=== PATIENT | male | born 1955 | race Caucasian/White ===

== ENCOUNTER 2020-06-27 15:12 | Observation (INO) | payer OTHER, BC, SELFPAY ==
[2020-06-27] VITALS (11 sets, daily range): BP systolic 103–150; BP diastolic 55–80; PULSE 65–91; RESP 12–20; TEMP 36.3–37.4; O2SAT 94–100; BMI 33.2
--- NOTE | ~2020-06-27 | CT_ITS ---
EXAMINATION: CT abdomen pelvis wo con DATE: 06/27/2020 17:17 INDICATION: Right lower abdominal pain TECHNIQUE: Computed tomography (CT) of the abdomen and pelvis was performed without intravenous contr ast. Automated exposure control and iterative reconstruction technique were employed. Exam dose: 116 9.66 mGy-cm total exam DLP. COMPARISON: None. FINDINGS: Minimal atelectasis in the dependent lower lobes primarily. Normal heart size. No pericardial or pleural effusion. Diffuse hepatic steatosis. The gallbladder is present. No pericholecystic fluid or fat stranding or a pparent gallbladder wall thickening or edema. No bile duct or pancreatic duct dilatation. No pancreat ic mass lesion or calcification. Normal splenic size. Normal morphology of the adrenal glands. The left kidney is surgically absent. No right renal mass lesion or urinary tract calculus or hydronephrosis is evident on this limited non contrast examination. The urinary bladder, prostate gland and seminal vesicles are unremarkable. Mild left inguinal fat-containing hernia. There is atherosclerotic calcification of the abdominal aorta and at the origins of the celiac and marie perior mesenteric arteries. No abdominal aortic aneurysm. No intraperitoneal or retroperitoneal or pe lvic mass lesion or adenopathy or ascites. The appendix is dilated up to 12 mm diameter, with thickening of the appendiceal wall and prominent p eriappendiceal fat stranding and adjacent fascial thickening consistent with prominent surrounding in flammatory change. There is minimal extraluminal gas adjacent to the appendiceal wall. There is mild diverticulosis of the left colon. No CT evidence of diverticulitis. IMPRESSION: Acute ruptured appendicitis with prominent surrounding inflammatory change Diverticulosis of the left colon; no CT evidence of diverticulitis Mild fat-containing left inguinal hernia Hepatic steatosis Status post left nephrectomy Dr. Crow telephoned the report on 06/27/2020 at 1731 hours to emergency room physician Dr. Barbosa. Reviewed, dictated and finalized at [facility]. Reviewed, dictated and finalized at [facility]. IMPRESSION: Acute ruptured appendicitis with prominent surrounding inflammator y change Diverticulosis of the left colon; no CT evidence of diverticulitis Mild fat-containing left inguinal hernia Hepatic steatosis Status post left nephrectomy Dr. Crow telephoned the report on 06/27/2020 at 1731 hours to emergency room kylah Barbosa.
[2020-06-27 15:30] LABS: Basophils Percent Auto 0.3 % (0.2-1.2); Eosinophils Absolute Auto 0.1 K/mm3 (0-0.3); Eosinophils Percent Auto 0.5 % (0-4.4); Hemoglobin 14.8 g/dL (14.0-18.0); Immature Granulocyte Absolute 0.04 K/mm3 (0.00-0.031); Immature Granulocyte Percent A 0.3 % (0-0.5); Mean Corpuscular HGB Conc 33.6 g/dl (32-36); Mean Corpuscular Hemoglobin 31.5 pg (26-34); Mean Corpuscular Volume 93.6 fl (80-100); Mean Platelet Volume 9.7 fl (7.4-10.4); Monocytes Absolute Auto 1.4 K/mm3 (0.1-0.6); Monocytes Percent Auto 10.5 % (2.6-8.5); Neutrophils Absolute Auto 10.6 K/mm3 (1.3-6.7); Neutrophils Percent Auto 79.4 % (45.5-73.1); Platelet Count Result 192 k/mm3 (150-375); Red Cell Distribution Width 12.5 % (11.5-14.5); White Blood Count 13.3 K/mm3 (4.5-10.0)
[2020-06-27 15:43] LABS: Alanine Aminotransferase 58 U/L (4-50); Alkaline Phosphatase 104 U/L (38-126); Anion Gap 8 mmol/L (8-16); Aspartate Amino Transferase 29 U/L (17-59); Bilirubin,Total 1.7 mg/dL (0.2-1.3); Blood Urea Nitrogen 20 mg/dL (9-20); Calcium 9.7 mg/dL (8.4-10.2); Carbon Dioxide 25 mmol/L (22-30); Chloride 105 mmol/L (98-107); Estimated CRCL calculation 56 ml/min; Estimated Glomerular Filt Rate 47; Glucose 122 mg/dL (75-110); Lipase 76 U/L (23-300); Potassium 4.2 mmol/L (3.4-5.0); Sodium 138 mmol/L (137-145)
[2020-06-27 16:27] LABS: Add Urine Microscopic? YES; Appearance Urine Clear (Clear); Bilirubin Urine Negative (Negative); Blood Urine Negative (Negative); Color Urine Amber (Yellow); Glucose Urine UA Negative (Negative); Ketones Urine Negative (Negative); Leukocyte Esterase Ur Negative LEU/UL (Negative); Mucus Urine Heavy /lpf; Nitrate Urine Negative (Negative); Protein Urine 2+ mg/dL (Negative); RBC Urine 0-2 /hpf (0-2); Squamous Epithelial Cell Urine Rare /hpf (Few); Urobilinogen Urine Negative mg/dL (<2.0)
--- NOTE | 2020-06-27 16:36 | ED.ABDPAIN ---
HPI - Abdominal Pain General Chief Complaint: Abdominal Pain Stated Complaint: abdominal pain Time Seen by Provider: 06/27/20 16:08 Source: patient and RN notes reviewed Mode of arrival: ambulatory Limitations: no limitations History of Present Illness HPI narrative: This is a 65 year old male who presents for evaluation of right lower abdominal pain. He developed diffuse abdominal discomfort with nausea and dry heaves early Saturday morning. He states his pain has now moved to his right lower abdomen. He reports severe constant pain. He has decreased appetite , subjective fever and chills. PAin is 8/10. Pain Consistency: constant Exacerbating factors: nothing Relieving factors: nothing Related Data Home Medications Medication Instructions Recorded Confirmed olmesartan 20 mg PO DAILY 06/27/20 06/27/20 Allergies Allergy/AdvReac Type Severity Reaction Status Date / Time No Known Allergies Allergy Verified 06/27/20 21:19 Review of Systems Review of Systems: All systems reviewed & are unremarkable except as noted in HPI and below Constitutional: Constitutional: Reports chills, Reports fever(s) (subjective) and Reports weakness Respiratory: Respiratory: Denies cough and Denies dyspnea Gastrointestinal: Gastrointestinal: Reports abdominal pain, Denies diarrhea, Reports nausea and Denies vomiting Genitourinary: Genitourinary: Denies hematuria, Denies dysuria and Denies urinary frequency Musculoskeletal: Musculoskeletal: Denies back pain PMF Past Medical History Medical History Hypertension Surgical History Surgical History History of nephrectomy Family History Family History (Updated 06/27/20 @ 21:29 by Ely Garcia RN) Father Family history of malignant neoplasm Throat cancer Mother Family history of malignant neoplasm Lung cancer Sibling Diabetes mellitus Social History Social History Smoking packs per day: 1 Smoking cigarettes per day: 20.0 Years smoked: 20 Smoking pack-years: 20.00 Smoking status: Former smoker Second hand tobacco smoke exposure: Yes Alcohol intake: current Drinks per week: 1 Substance use: former Substance use type: marijuana Other substance usage details: 1970 Gender identity (if verbalized by the patient): Male Sexual Orientation (if Verbalized by the Patient): Straight or Heterosexual Spiritual care concerns: No Exam Narrative: Exam Narrative: GENERAL: Well-appearing, well-nourished, and in no acute distress. HEAD: Normocephalic, atraumatic NOSE: Nares clear, no rhinorrhea or epistaxis THROAT:Mucous membranes moist, Oropharynx normal without erythema, exudate, peritonsillar swelling or fluctuance NECK: Supple, without lymphadenopathy or mass RESPIRATORY: No respiratory distress, Airway patent, Respirations non-labored, Clear to auscultation without rales, rhonchi or wheeze HEART: Regular rate and rhythm. No murmur heard. Normal peripheral pulses. ABDOMEN: Soft,RLQ, positive rovsing nondistended, normal active bowel sounds. No masses. No rebound or guarding, No organomegaly. EXTREMITIES: No edema, normal strength with full range of motion. SKIN: Warm, dry, normal color without rash NEURO: Alert and oriented x3. CN 2-12 grossly intact. No focal deficits. PSYCH: Normal mood and affect. Course Reevaluation(s) Reevaluation #1: I discussed with patient that he was found to have ruptured appendicitis. He will get IV antibiotics. He denies needing additional pain medication. Date: 06/27/20 Time: 17:51 Consultations Consultation #1: I discussed with Dr. Alvarez and he will call OR Date: 06/27/20 Time: 17:50 Vital Signs Vital signs: Vital Signs Temperature 98.2 F 06/27/20 15:18 Pulse Rate 91 06/27/20 15:18 Respiratory Rate
[2020-06-27] MEDS: LACTATED RINGERS 1,000 ML 999 ML IV CONT (16:37)
[2020-06-27] MEDS: ONDANSETRON INJ 4 MG/2 ML VIAL IV PUSH (16:37)
--- NOTE | 2020-06-27 17:09 | PC.NURSE ---
Pt to CT.
--- NOTE | 2020-06-27 18:39 | PM.IMHP ---
H&P: HPI History of Present Illness Date/Time: 06/27/20 18:39 Chief Complaint: RLQ pain Narrative: This is a 65-year-old man who presented to the emergency department today with right lower quadrant pain. He stated that his pain started 2 days ago. His pain progressed throughout the day yesterday but this morning became much worse. He denies any fevers or chills. He has never had any symptoms like this in the past. Review of Systems Review of Systems: All systems reviewed & are unremarkable except as noted in HPI and below Eyes: Eyes: Denies change in vision ENT: Denies hearing loss, Denies neck pain and Denies sore throat Cardiovascular: Cardiovascular: Denies chest pain and Denies dyspnea Respiratory: Respiratory: Denies cough, Denies dyspnea and Denies wheezing Genitourinary: Genitourinary: Denies hematuria and Denies dysuria Musculoskeletal: Musculoskeletal: Denies arthralgias, Denies joint swelling and Denies neck pain Allergic/Immunologic: Allergic/Immunologic: Denies wheezing [facility] Past Medical History Medical History Hypertension Surgical History Surgical History History of nephrectomy Family History Family History Father Family history of malignant neoplasm Mother Family history of malignant neoplasm Social History Social History Smoking status: Former smoker Alcohol intake: current Gender identity (if verbalized by the patient): Male Meds Home Medications and Allergies Home Medications Medication Instructions Recorded Confirmed Type olmesartan PO 06/27/20 History Allergies Allergy/AdvReac Type Severity Reaction Status Date / Time No Known Allergies Allergy Unverified 06/27/20 16:08 Vital Signs Vital Signs - 24 hr 06/27/20 15:18 06/27/20 18:08 Temperature 36.8 C Pulse Rate 91 83 Respiratory Rate 17 18 Blood Pressure 136/76 103/58 L Pulse Oximetry 99 98 Exam Const: General: alert; No acute distress Orientation/consciousness: patient oriented x3 Limitations: no limitations HENMT: Head: normocephalic and atraumatic Ears: hearing grossly normal bilaterally General nose exam: Normal external nose present and Normal nares present Mouth: Yes Normal oral and palatal mucosa present and Yes moist mucous membranes Eyes: General: appearance normal, both eyes and all related structures Conjunctivae: conjunctivae normal Sclera: sclerae normal Pupils: Equal, round and reactive pupils present EOM: EOMs intact bilaterally Neck: Neck: normal visual inspection, full ROM, no lymphadenopathy, supple and no JVD Lymphatic: no lymphadenopathy noted Chest: Chest palpation & inspection: normal inspection of the chest Resp: Effort & Inspection: normal respiratory effort and able to speak in complete sentences Auscultation: clear to auscultation bilaterally Percussion: percussion normal Cardio: Jugular venous distension: no JVD Rate: regular rate Rhythm: regular rhythm Heart sounds: S1 normal heart sound present and S2 normal heart sound present Peripheral pulses: Peripheral pulses 2+ throughout GI: Inspection: non-distended GI Palp: Yes Soft to palpation, Yes Tenderness to palpation present (GI) (Right lower quadrant), Yes Guarding due to palpation present (GI) (Right lower quadrant), No Hernia present and No Rebound tenderness present Percussion: Yes normal to percussion Auscultation: normal bowel sounds : General: Yes no CVA tenderness Back/Spine/Pelvis: Back: no CVA tenderness Skin: General skin exam: normal color and dry skin Neuro: General: patient oriented x3, gait normal, moves all extremities, no focal motor deficits and CN's II-XI intact bilaterally Cranial nerves: Yes Equal, round and reactive pupils present Speech: normal s
--- NOTE | 2020-06-27 18:43 | WPDANESEPPF ---
Anes - Initial Pre Proc Eval Procedure: Operation Date: 06/27/20 19:00 Proposed Procedures p Laparoscopic Appendectomy - Tristian Alvarez DO Date/Time: 06/27/20 18:43 Pre Op Diagnosis: abdominal pain Patient Data Age: 65 Gender: M Height: 5 ft 11 in Weight: 104 kg Last Vital Signs Temp 36.8 C 06/27/20 15:18 Pulse 83 06/27/20 18:08 Resp 18 06/27/20 18:08 BP 103/58 L 06/27/20 18:08 Pulse Ox 98 06/27/20 18:08 Allergies Allergy/AdvReac Type Severity Reaction Status Date / Time No Known Allergies Allergy Unverified 06/27/20 16:08 Home Medications Medication Instructions Recorded Confirmed Type olmesartan PO 06/27/20 History Laboratory Tests 06/27/20 06/27/20 06/27/20 15:23 15:23 16:11 WBC 13.3 K/mm3 H K/mm3 (4.5-10.0) RBC 4.70 M/mm3 M/mm3 (4.6-6.20) Hgb 14.8 g/dL g/dL (14.0-18.0) Hct 44.0 % % (42.0-52.0) MCV 93.6 fl fl (80-100) MCH 31.5 pg pg (26-34) MCHC 33.6 g/dl g/dl (32-36) RDW 12.5 % % (11.5-14.5) Plt Count 192 k/mm3 k/mm3 (150-375) MPV 9.7 fl fl (7.4-10.4) Immature Gran % (Auto) 0.3 % % (0-0.5) Neut % (Auto) 79.4 % H % (45.5-73.1) Lymph % (Auto) 9.0 % L % (18.3-44.2) [place] % (Auto) 10.5 % H % (2.6-8.5) Eos % (Auto) 0.5 % % (0-4.4) Baso % (Auto) 0.3 % % (0.2-1.2) Lymph # (Auto) 1.20 K/mm3 K/mm3 (0.9-3.2) [place] # (Auto) 1.4 K/mm3 H K/mm3 (0.1-0.6) Eos # (Auto) 0.1 K/mm3 K/mm3 (0-0.3) Baso # (Auto) 0.0 K/mm3 K/mm3 (0.0-0.1) Abs Immat Gran (auto) 0.04 K/mm3 H K/mm3 (0.00-0.031) Absolute Neuts (auto) 10.6 K/mm3 H K/mm3 (1.3-6.7) Absolute Nucleated RBC 0.0 K/mm3 K/mm3 (0.0-0.012) Nucleated RBC % 0.0 % % (0.0-0.2) Sodium 138 mmol/L mmol/L (137-145) Potassium 4.2 mmol/L mmol/L (3.4-5.0) Chloride 105 mmol/L mmol/L (98-107) Carbon Dioxide 25 mmol/L mmol/L (22-30) Anion Gap 8 mmol/L mmol/L (8-16) BUN 20 mg/dL mg/dL (9-20) Creatinine 1.50 mg/dL H mg/dL (0.7-1.3) Estim Creat Clear Calc 56 ml/min ml/min Estimated GFR 47 L (59 - ) Glucose 122 mg/dL H mg/dL (75-110) Calcium 9.7 mg/dL mg/dL (8.4-10.2) Total Bilirubin 1.7 mg/dL H mg/dL (0.2-1.3) AST 29 U/L U/L (17-59) ALT 58 U/L H U/L (4-50) Alkaline Phosphatase 104 U/L U/L (38-126) Total Protein 9.0 g/dL H g/dL (6.3-8.2) Albumin 5.0 g/dL g/dL (3.5-5.1) Lipase 76 U/L U/L (23-300) Urine Color Nayla (Yellow) Urine Appearance Clear (Clear) Urine pH 6.0 (5.0-9.0) Ur Specific [place] 1.030 (1.001-1.035) Urine Protein 2+ mg/dL H mg/dL (Negative) Urine Glucose (UA) Negative mg/dL mg/dL (Negative) Urine Ketones Negative mg/dL mg/dL (Negative) Ur Blood (Man) Negative (Negative) Urine Nitrate Negative (Negative) Urine Bilirubin Negative (Negative) Urine Urobilinogen Negative mg/dL mg/dL (<2.0) Leukocyte Esterase Rfl Negative KELLE/UL KELLE/UL (Negative) Urine RBC 0-2 /hpf /hpf (0-2) Urine WBC 7-9 /hpf H /hpf Ur Squamous Epith Cells Rare /hpf /hpf (Few) Hyaline Casts 5-9 /lpf H /lpf (None) Urine Mucus Heavy /lpf H /lpf Patient hx anesthesia problems: none Family hx anesthesia problems: none PMFSH Past Medical History Medical History Hypertension Surgical History Surgical History History of nephrectomy Family History Family History
--- NOTE | 2020-06-27 18:45 | WPDHPUPDATE1 ---
History and Physical Update Update Date/Time: 06/27/20 18:45 History and Physical has been reviewed, including an updated exam of the patient. There are NO changes in the patient's condition. Risks, benefits, and alternatives have been discussed and questions answered. Patient agrees to proceed with procedure.
--- NOTE | 2020-06-27 18:45 | PM.PROC ---
Procedure Note - Detailed Date of procedure: 06/27/20 Pre-op diagnosis: Acute appendicitis Post-op diagnosis: other (Acute gangrenous perforated appendicitis) Procedure performed: Laparoscopic Appendectomy Description of procedure: Procedure as well as risks, benefits, and alternatives were explained to the patient. The patient agreed to proceed. Written consent was obtained and placed in chart prior to procedure. The patient was brought back to surgical suite. He was placed supine on operating table. Time-out was done to confirm the patient and procedure. The patient was then intubated by the Anesthesia Department. His abdomen was prepped and draped in sterile fashion using chlorhexidine prep. A 5 mm incision was made just to the left of the patient's umbilicus and a 5 mm Optiview trocar was advanced through the abdominal layers under direct visualization. Once inside the peritoneal cavity, carbon dioxide insufflation was used to create a pneumoperitoneum. The camera was inserted and the abdomen was inspected. No immediate abnormalities were identified. The patient was then placed in slight Trendelenburg position and rotated to the left. A 5 mm incision was made in the suprapubic region in midline and a 5 mm trocar was inserted under direct visualization. A 12 mm incision was made in the left lower quadrant and a 12 mm trocar was inserted under direct visualization. The right lower quadrant was carefully inspected. The cecum was identified and then this was traced back to the appendix. The appendix was identified and grasped at the mesoappendix and lifted anteriorly. Careful blunt dissection was carried out at the base of the appendix through the mesoappendix using a [place] grasper. An Endo-MERLIN 45 mm blue load stapler was then advanced across the base of the appendix and clamped and fired. A white reload was then clamped across the mesoappendix and fired. This freed up our appendix completely. It was then placed in an EndoCatch bag and removed through the left lower quadrant port. The staple lines were then inspected. Hemostasis appeared adequate and the staple lines appeared secure. The area was then irrigated with sterile saline. The pelvis was then carefully inspected and irrigated with sterile saline as well and the remainder of the abdomen was carefully inspected. The patient was then flattened out in bed. One final inspection was made around the abdominal cavity and no other abnormalities were seen. The left lower quadrant port was removed and a Angel-Nicole cone was used to approximate the fascia with a 0 Vicryl simple interrupted suture. The remaining ports were then removed under direct visualization. The camera was removed and the pneumoperitoneum was released. 0.5% bupivacaine with epinephrine was infiltrated locally around each of the incisions. The skin of the incisions was then approximated using 4-0 Monocryl subcuticular suture and Exofin glue was applied on top. The patient was then awakened from anesthesia, extubated, and transferred to Recovery. Anesthesia: GETA and local (0.5% bupivicaine with epi) Surgeon: Tristian Alvarez DO Estimated blood loss (mL): 10 Drains: No Pathology: yes (Appendix) Complications: No immediate complications Condition: stable Disposition: floor Findings: This is a 65-year-old man who presented to the emergency department with right lower quadrant pain for the past 2 days. His pain was progressively worsening and became severe today. In the emergency department he was found to have an elevated white blood count and CT showed evidence of acute appendicitis with likely perforation. Decision was made to proceed with urgent laparoscopic appendectomy, possible open. Laparoscopic appendectomy was performed. The appendix appeared gangrenous and had likely perforation but no surrounding abscess or spillage of purulent fluid. The base of the appendix appeared healthy and viable. He was found to
[2020-06-27] MEDS: BUPIVACAINE/EPINEPHRINE 0.5% 30 ML VIAL INFILTRATE (19:05)
[2020-06-27] MEDS: LACTATED RINGERS 1,000 ML 30 ML IV CONT ×2 (19:43)
--- NOTE | 2020-06-27 19:48 | SUR.OPER ---
PRE OP PATIENT WITH CHIPPED RIGHT UPPER FRONT TOOTH CHIP/ASSESSED BY NIK ROMERO CRNA AND AL JOHNSON RN.
--- NOTE | 2020-06-27 21:00 | ADMGEN ---
This patient, Sundeep Burnette, was admitted to Medical Room 347-. Patient/family oriented to hospital policies and general routines including ID bracelet, bed and alarms, visiting hours, pain management, procedures, bathroom and other care routines, personal items, smoking policy, room service/diet, and visiting hours. Information on how to activate the Rapid Response Team has been discussed. Patient/Family are encouraged to report perceived risks to care and to ask questions if they do not understand what they are told or what they should do.
[2020-06-27] MEDS: LACTATED RINGERS 1,000 ML 100 ML IV CONT (21:39)
[2020-06-28 02:40] VITALS: BP 98/46; PULSE 75; RESP 14; TEMP 36.6; O2SAT 96
[2020-06-28 05:47] LABS: Hematocrit 35.2 % (42.0-52.0); Immature Platelet Fraction Pct 3.2 % (0.9-11.2); Mean Corpuscular HGB Conc 34.1 g/dl (32-36); Mean Corpuscular Hemoglobin 31.2 pg (26-34); Mean Corpuscular Volume 91.4 fl (80-100); Mean Platelet Volume 10.2 fl (7.4-10.4); Platelet Count Result 145 k/mm3 (150-375); Red Blood Count 3.85 M/mm3 (4.6-6.20); Red Cell Distribution Width 12.4 % (11.5-14.5); White Blood Count 8.1 K/mm3 (4.5-10.0)
[2020-06-28 06:00] LABS: Anion Gap 5 mmol/L (8-16); Blood Urea Nitrogen 17 mg/dL (9-20); Calcium 8.5 mg/dL (8.4-10.2); Carbon Dioxide 25 mmol/L (22-30); Chloride 108 mmol/L (98-107); Estimated CRCL calculation 57 ml/min; Estimated Glomerular Filt Rate 47; Glucose 108 mg/dL (75-110); Sodium 138 mmol/L (137-145)
[2020-06-28 06:17] VITALS: BP 126/69; PULSE 72; RESP 18; TEMP 37.2; O2SAT 93
--- NOTE | 2020-06-28 08:48 | WPDANESPN ---
Anes - Prog Note Post-Op Date/Time: 06/28/20 08:48 Cardiovascular status: normal Respiratory status: normal Airway patency: baseline Mental status: baseline Post-Op hydration status: normal Vital Signs: Last Vital Signs Temp 37.2 C 06/28/20 06:17 Pulse 72 06/28/20 06:17 Resp 18 06/28/20 06:17 BP 126/69 06/28/20 06:17 Pulse Ox 93 06/28/20 06:17 Pain Score (VAS): 0 I/O: Intake & Output 06/27/20 06/28/20 06/28/20 23:59 07:59 15:59 Intake Total 1700 1100 Output Total 500 550 Balance 1200 550 Laboratory Tests 06/28/20 05:20 06/28/20 05:20 06/27/20 06/27/20 06/27/20 15:23 15:23 16:11 WBC 13.3 H RBC 4.70 Hgb 14.8 Hct 44.0 MCV 93.6 MCH 31.5 MCHC 33.6 RDW 12.5 Plt Count 192 MPV 9.7 Immature Gran % (Auto) 0.3 Neut % (Auto) 79.4 H Lymph % (Auto) 9.0 L [place] % (Auto) 10.5 H Eos % (Auto) 0.5 Baso % (Auto) 0.3 Lymph # (Auto) 1.20 [place] # (Auto) 1.4 H Eos # (Auto) 0.1 Baso # (Auto) 0.0 Abs Immat Gran (auto) 0.04 H Absolute Neuts (auto) 10.6 H Absolute Nucleated RBC 0.0 Nucleated RBC % 0.0 % Immature Plt Fraction Sodium 138 Potassium 4.2 Chloride 105 Carbon Dioxide 25 Anion Gap 8 BUN 20 Creatinine 1.50 H Estim Creat Clear Calc 56 Estimated GFR 47 L Glucose 122 H Calcium 9.7 Total Bilirubin 1.7 H AST 29 ALT 58 H Alkaline Phosphatase 104 Total Protein 9.0 H Albumin 5.0 Lipase 76 Urine Color Nayla Urine Appearance Clear Urine pH 6.0 Ur Specific [place] 1.030 Urine Protein 2+ H Urine Glucose (UA) Negative Urine Ketones Negative Ur Blood (Man) Negative Urine Nitrate Negative Urine Bilirubin Negative Urine Urobilinogen Negative Leukocyte Esterase Rfl Negative Urine RBC 0-2 Urine WBC 7-9 H Ur Squamous Epith Cells Rare Hyaline Casts 5-9 H Urine Mucus Heavy H 06/28/20 06/28/20 05:20 05:20 WBC 8.1 RBC 3.85 L Hgb 12.0 L Hct 35.2 L MCV 91.4 MCH 31.2 MCHC 34.1 RDW 12.4 Plt Count 145 L MPV 10.2 Immature Gran % (Auto) Neut % (Auto) Lymph % (Auto) [place] % (Auto) Eos % (Auto) Baso % (Auto) Lymph # (Auto) [place] # (Auto) Eos # (Auto) Baso # (Auto) Abs Immat Gran (auto) Absolute Neuts (auto) Absolute Nucleated RBC Nucleated RBC % % Immature Plt Fraction 3.2 Sodium 138 Potassium 4.0 Chloride 108 H Carbon Dioxide 25 Anion Gap 5 L BUN 17 Creatinine 1.50 H Estim Creat Clear Calc 57 Estimated GFR 47 L Glucose 108 Calcium 8.5 Total Bilirubin AST ALT Alkaline Phosphatase Total Protein Albumin Lipase Urine Color Urine Appearance Urine pH Ur Specific [place] Urine Protein Urine Glucose (UA) Urine Ketones Ur Blood (Man) Urine Nitrate Urine Bilirubin Urine Urobilinogen Leukocyte Esterase Rfl Urine RBC Urine WBC Ur Squamous Epith Cells Hyaline Casts Urine Mucus Post-procedural complaints: none Patient Feedback: Patient satisfied with anesthetic care.
[2020-06-28] MEDS: ENOXAPARIN 40 MG/0.4 ML SYRINGE SUB-Q (09:05)
--- NOTE | 2020-06-28 12:38 | PM.DS ---
DS: Admitting Diagnosis Admitting Diagnosis Admitting Diagnosis: Acute perforated appendicitis DS: Discharge Diagnosis Discharge Diagnosis (1) Acute perforated appendicitis: Code(s): K35.32 - Acute appendicitis with perforation and localized peritonitis, without abscess Status: Acute DS: Summary Hospital Course Reason for hospitalization: acute perforated appendicitis Hospital Course: this is a 65-year-old man who presented to the emergency department on 06/27/2020 with right lower quadrant pain for the past [address] of his abdomen and pelvis showed evidence of acute perforated appendicitis. He was taken urgently for surgery 06/27/2020 and underwent laparoscopic appendectomy. Surgery was uncomplicated and he was admitted to the surgical floor postoperatively. His diet was gradually advanced as tolerated and his pain was controlled with IV and oral pain medications. He remained hemodynamically stable and on postop day 1 he was tolerating a regular diet. He remained afebrile and his white blood count was normal. He was tolerating light activity without too much pain. He was discharged on postop day 1. Status at Discharge Functional status at discharge: independent ambulation Overall status at discharge: patient is progressing back to baseline Time Spent with Patient Time attestation: Total time spent providing and/or coordinating discharge services: Time spent: Less than 30 minutes Exam Resp: Effort & Inspection: normal respiratory effort Auscultation: clear to auscultation bilaterally Cardio: Rate: regular rate Rhythm: regular rhythm Heart sounds: S1 normal heart sound present and S2 normal heart sound present GI: Inspection: normal to inspection and incision ( Intact with glue) GI Palp: Yes Tenderness to palpation present (GI) ( incisional) and No Guarding due to palpation present (GI) Auscultation: normal bowel sounds DS: Data Data Completed and Pending Pending studies at discharge: Pending at discharge 06/27/20 19:47 Surgical [PTH] Routine Labs on day of discharge: Labs from last 24 hours 06/28/20 06/28/20 06/27/20 05:20 05:20 16:11 WBC 8.1 RBC 3.85 L Hgb 12.0 L Hct 35.2 L MCV 91.4 MCH 31.2 MCHC 34.1 RDW 12.4 Plt Count 145 L MPV 10.2 Immature Gran % (Auto) Neut % (Auto) Lymph % (Auto) [place] % (Auto) Eos % (Auto) Baso % (Auto) Lymph # (Auto) [place] # (Auto) Eos # (Auto) Baso # (Auto) Abs Immat Gran (auto) Absolute Neuts (auto) Absolute Nucleated RBC Nucleated RBC % % Immature Plt Fraction 3.2 Sodium 138 Potassium 4.0 Chloride 108 H Carbon Dioxide 25 Anion Gap 5 L BUN 17 Creatinine 1.50 H Estim Creat Clear Calc 57 Estimated GFR 47 L Glucose 108 Calcium 8.5 Total Bilirubin AST ALT Alkaline Phosphatase Total Protein Albumin Lipase Urine Color Nayla Urine Appearance Clear Urine pH 6.0 Ur Specific [place] 1.030 Urine Protein 2+ H Urine Glucose (UA) Negative Urine Ketones Negative Ur Blood (Man) Negative Urine Nitrate Negative Urine Bilirubin Negative Urine Urobilinogen Negative Leukocyte Esterase Rfl Negative Urine RBC 0-2 Urine WBC 7-9 H Ur Squamous Epith Cells Rare Hyaline Casts 5-9 H Urine Mucus Heavy H 06/27/20 06/27/20 15:23 15:23 WBC 13.3 H RBC 4.70 Hgb 14.8 Hct 44.0 MCV 93.6 MCH 31.5 MCHC 33.6 RDW 12.5 Plt Count 192 MPV 9.7 Immature Gran % (Auto) 0.3 Neut % (Auto) 79.4 H Lymph % (Auto) 9.0 L [place] % (Auto) 10.5 H Eos % (Auto) 0.5 Baso % (Auto) 0.3 Lymph # (Auto) 1.20 [place] # (Auto) 1.4 H Eos # (Auto) 0.1 Baso # (Auto) 0.0 Abs Immat Gran (auto) 0.04 H Absolute Neuts (auto) 10.6 H Absolute Nucleated RBC 0.0 Nucleated RBC % 0.0 % Immature Plt Fraction Sodium 138 Potassium 4.2 Chloride 105 Carbon Dioxide
== END 2020-06-28 13:15 | disposition home or self-care (01) ==
LOC: ANHED 16:42 → ANHSURGERY 18:46 → ANH3MED 22:46
PROVIDERS: Emergency Medicine; Admitting Provider Surgery; Emergency Provider General Practice; PCP Internal Medicine; Visit Provider Surgery
PROC: 0DTJ4ZZ Resection of Appendix, Percutaneous Endoscopic Approach (ICD-10-PCS; CPT 44970; principal; 2020-06-27 19:00)
DX: K35.32 Acute appendicitis with perforation, localized peritonitis, and gangrene, without abscess (principal); R10.31 Right lower quadrant pain; I10 Essential (primary) hypertension; Z90.5 Acquired absence of kidney; Z87.891 Personal history of nicotine dependence
CPT/HCPCS: 44970; 36415; 74176; 80048; 80053; 81001; 83690; 85025; 85027; 85055; 87086; 88304; 96361; 96365; 96367; 96372; 96375; 96376; 99285; A9270; G0378; J0131; J0330; J1650; J2250; J2405; J2543; J2704; J2710; J3010; J7120

== ENCOUNTER 2021-09-18 00:24 | Day surgery (SDC) | payer OTHER, BC, SELFPAY ==
[2021-09-07 10:01] VITALS: BMI 32.8
[2021-09-18 08:07] VITALS: BP 120/81; PULSE 64; RESP 18; TEMP 36; O2SAT 98
[2021-09-18] MEDS: LACTATED RINGERS 1,000 ML 150 ML IV CONT (08:09)
--- NOTE | 2021-09-18 08:18 | PM.IMHP ---
H&P: HPI History of Present Illness Date/Time: 09/18/21 08:18 Chief Complaint: Neoplasia screening. Narrative: This is a 66-year-old white male patient presents for neoplasia screening. Patient's current weight appetite and bowel movements are normal. Patient denies abdominal pain. He has had no bleeding. Family history is noncontributory. Patient presents today for screening colonoscopy. Review of Systems Review of Systems: Review of systems noncontributory. [facility] Past Medical History Medical History Hypertension Surgical History Surgical History History of laparoscopic appendectomy 06/27/20 History of nephrectomy Family History Family History Father Family history of malignant neoplasm Throat cancer Mother Family history of malignant neoplasm Lung cancer Sibling Diabetes mellitus Social History Social History Smoking packs per day: 1 Smoking cigarettes per day: 20.0 Years smoked: 20 Smoking pack-years: 20.00 Smoking status: Former smoker Tobacco type: cigarettes Second hand tobacco smoke exposure: Yes Alcohol intake: current Drinks per week: 1 Substance use: former Substance use type: marijuana Other substance usage details: 1970 Living arrangements: with family Gender identity (if verbalized by the patient): Male Sexual Orientation (if Verbalized by the Patient): Straight or Heterosexual Spiritual care concerns: No Meds Home Medications and Allergies Home Medications Medication Instructions Recorded Confirmed Type olmesartan 20 mg tablet 20 mg PO DAILY 06/27/20 09/18/21 History aspirin 81 mg tablet 81 mg PO 2XW 09/07/21 09/18/21 History Allergies Allergy/AdvReac Type Severity Reaction Status Date / Time No Known Allergies Allergy Verified 09/18/21 08:05 Vital Signs Vital Signs - 24 hr 09/18/21 08:07 Temperature 96.8 F L Pulse Rate 64 Respiratory Rate 18 Blood Pressure 120/81 Pulse Oximetry 98 Oxygen Delivery Room Air Exam Narrative: Physical exam reveals patient be alert. Vital signs stable. HEENT exam is unremarkable. Patient is anicteric. Lungs are clear to auscultation and percussion. Heart is without murmur or extra sounds. Abdominal exam bowel sounds are present soft nontender with no organomegaly. Digital external rectal exam is normal. Assessment and Plan Assessment and plan (1) Encounter for screening colonoscopy: Code(s): Z12.11 - Encounter for screening for malignant neoplasm of colon Status: Acute Assessment and Plan: Patient presents today for screening colonoscopy. Appears to be at average risk for colon polyps. Further recommendations will be given after endoscopy.
--- NOTE | 2021-09-18 08:29 | P.PNAN_ITS ---
Anes - Initial Pre Proc Eval Procedure: Operation Date: 09/18/21 09:00 Proposed Procedures p Screening Colonoscopy - Malik Smith MD Date/Time: 09/18/21 08:29 Surgeon: Malik Smith MD Pre Op Diagnosis: neoplasm screening Patient Data Age: 66 Gender: M Height: 1.8 m Weight: 108.5 kg Last Vital Signs Temp 96.8 F L 09/18/21 08:07 Pulse 64 09/18/21 08:07 Resp 18 09/18/21 08:07 BP 120/81 09/18/21 08:07 Pulse Ox 98 09/18/21 08:07 O2 Del Method Room Air 09/18/21 08:07 Allergies Allergy/AdvReac Type Severity Reaction Status Date / Time No Known Allergies Allergy Verified 09/18/21 08:05 Home Medications Medication Instructions Recorded Confirmed Type olmesartan 20 mg tablet 20 mg PO DAILY 06/27/20 09/18/21 History aspirin 81 mg tablet 81 mg PO 2XW 09/07/21 09/18/21 History Patient hx anesthesia problems: none Family hx anesthesia problems: none Results Review: All pre-operative results and documents have been reviewed as part of the pre- operative evaluation. [facility] Past Medical History Medical History Hypertension Surgical History Surgical History History of laparoscopic appendectomy 06/27/20 History of nephrectomy Family History Family History Father Family history of malignant neoplasm Throat cancer Mother Family history of malignant neoplasm Lung cancer Sibling Diabetes mellitus Social History Social History Smoking packs per day: 1 Smoking cigarettes per day: 20.0 Years smoked: 20 Smoking pack-years: 20.00 Smoking status: Former smoker Tobacco type: cigarettes Second hand tobacco smoke exposure: Yes Alcohol intake: current Drinks per week: 1 Substance use: former Substance use type: marijuana Other substance usage details: 1970 Living arrangements: with family Gender identity (if verbalized by the patient): Male Sexual Orientation (if Verbalized by the Patient): Straight or Heterosexual Spiritual care concerns: No Anes - Eval Final PreProcedure Day of Procedure 09/18/21 08:29 Patient weight: obese Heart: regular rate and rhythm Lungs: clear to auscultation Airway: Mallampati scale class II Neurological: alert and oriented Last oral intake: >/= 8 hours ASA classification: III Emergent: no Anesthetic plan: proceed Anesthesia type and monitoring: general GIVS and standard monitoring Results Review: All pre-operative results and documents have been reviewed as part of the pre- operative evaluation. Informed Consent: The patient's anesthetic plan and its attendant risks and benefits were discussed with the patient/family/POA. Questions were solicited and answers provided to the satisfaction of the patient/family/POA.
[2021-09-18 09:16] VITALS: BP 80/50; PULSE 62; RESP 20; O2SAT 100
[2021-09-18 09:26] VITALS: BP 83/41; PULSE 60; RESP 20; O2SAT 98
[2021-09-18 09:36] VITALS: BP 100/57; PULSE 55; RESP 13; O2SAT 100
[2021-09-18 09:53] LABS: Basophils Percent Auto 0.8 % (0.2-1.2); Eosinophils Absolute Auto 0.2 K/mm3 (0-0.3); Eosinophils Percent Auto 3.1 % (0-4.4); Hematocrit 39.1 % (42.0-52.0); Hemoglobin 12.9 g/dL (14.0-18.0); Immature Granulocyte Absolute 0.02 K/mm3 (0.00-0.031); Immature Granulocyte Percent A 0.4 % (0-0.5); Lymphocytes Absolute Auto 1.28 K/mm3 (0.9-3.2); Lymphocytes Percent Auto 26.4 % (18.3-44.2); Mean Corpuscular Hemoglobin 31.4 pg (26-34); Mean Corpuscular Volume 95.1 fl (80-100); Mean Platelet Volume 9.8 fl (7.4-10.4); Monocytes Absolute Auto 0.5 K/mm3 (0.1-0.6); Monocytes Percent Auto 9.5 % (2.6-8.5); Neutrophils Absolute Auto 2.9 K/mm3 (1.3-6.7); Neutrophils Percent Auto 59.8 % (45.5-73.1); Platelet Count Result 164 k/mm3 (150-375); Red Blood Count 4.11 M/mm3 (4.6-6.20); Red Cell Distribution Width 12.7 % (11.5-14.5); White Blood Count 4.9 K/mm3 (4.5-10.0)
[2021-09-18 10:10] LABS: Alanine Aminotransferase 79 U/L (6-50); Albumin Level 4.5 g/dL (3.5-5.1); Alkaline Phosphatase 85 U/L (38-126); Aspartate Amino Transferase 53 U/L (17-59)
[2021-09-18 10:39] LABS: Carcinoembryonic Antigen 0.4 ng/mL (0.0-3.0)
== END 2021-09-18 09:52 | disposition home or self-care (01) ==
PROVIDERS: PCP Internal Medicine; Visit Provider Internal Medicine Gastroenterology
PROC: 0DJD8ZZ Inspection of Lower Intestinal Tract, Via Natural or Artificial Opening Endoscopic (ICD-10-PCS; CPT 45378; principal; 2021-09-18 09:00)
DX: Z12.11 Encounter for screening for malignant neoplasm of colon (principal); C19 Malignant neoplasm of rectosigmoid junction; I10 Essential (primary) hypertension; Z79.82 Long term (current) use of aspirin; Z90.5 Acquired absence of kidney; Z87.891 Personal history of nicotine dependence; E66.9 Obesity, unspecified; Z68.33 Body mass index [BMI] 33.0-33.9, adult
CPT/HCPCS: 45380; 36415; 80076; 82378; 85025; 88305; J2704; J7120

== ENCOUNTER 2021-10-02 13:47 | Outpatient (CLI) | payer OTHER, BC, SELFPAY ==
--- NOTE | 2021-10-02 14:57 | ECG_ITS ---
Measurements Intervals [place] Rate: 60 P: -9 UT: 166 QRS: 44 QRSD: 96 T: 14 QT: 396 QTc: 396 Interpretive Statements SINUS RHYTHM MODERATE T-WAVE ABNORMALITY, CONSIDER ANTERIOR ISCHEMIA ABNORMAL ECG NO PREVIOUS ECG AVAILABLE FOR COMPARISON Electronically Signed On 10-02-2021 16:38:16 CDT by Jean Au M.D.
== END 2021-10-02 13:48 | disposition home or self-care (01) ==
LOC: ANHSURGERY 13:54
PROVIDERS: PCP Internal Medicine; Visit Provider Surgery
DX: I10 Essential (primary) hypertension (principal); Z01.818 Encounter for other preprocedural examination; R94.31 Abnormal electrocardiogram [ECG] [EKG]
CPT/HCPCS: 93005

== ENCOUNTER 2021-10-18 14:42 | Inpatient (IN) | payer OTHER, BC, SELFPAY ==
--- NOTE | 2021-10-02 14:14 | PC.NURSE ---
Report to the Outpatient Waiting Room, entrance under the green pavilion located off [facility], at time _1000 on date _10/18/21 . OR Time: __1200 . - You and your visitor will be asked to self-screen and do not enter if you have any COVID symptoms. - Only one visitor and NO children visitors are allowed at this time. - The patient visitor is requested to leave or wait in car when not with patient due to restrictions. - A mask is required within the hospital. Patients may have clear liquids (water, carbonated beverages, clear teas, apple juice) until 3 hours prior to surgery with a maximum of 20 ounces. - No food from midnight until time of surgery - Infants may have breast milk until 4 hours before surgery, infant formula 6 hours prior to surgery. - Children will be allowed to drink immediately following surgery. If applicable, please bring a bottle or sippy cup to assist with drinking. Juice, water, soda, and popsicles are readily available. For infants on formula, please bring formula the day of surgery. Pacifiers are allowed. Take the following medications with a SIP of water the morning of surgery: NONE Medications to discontinue per physician MULTI VITAMIN 3 DAYS PRE OP Date to take last dose 10/14/21 Please no make-up, nail sa[place], hairspray, perfume, deodorant, or body powder the day of surgery. No jewelry (including any body piercings) or valuables the day of surgery, leave them at home. Please take a shower or bath the night before, or the morning of, surgery with an antibacterial soap. Wear comfortable, loose fitting clothing. Children are encouraged to wear pajamas. - Jewelry must be removed prior to entering the operating room. Rings and piercings that are not removed may be cut off. - The hospital will not accept responsibility for valuables. - Please leave all valuables, including medications, at home the day of surgery.HIBICLENS SHOWER DAY BEFORE SURGERY AND MORNING OF SURGERY ENSURE BUNDLE PACK PER DR WHITAKER If you are going home after surgery, a licensed fork truck driver must drive you home. - NO public transportation without another adult. - We recommend that an adult stay with you for 24 hours following discharge. - We also recommend that you do not drive, make important decision, drink alcoholic beverages, or take any drugs that were not prescribed by your health care provider for at least 24 hours after your discharge time. For Pediatric surgeries, we recommend two adults accompany the child home (only one inside the building at this time). Follow any additional instructions given to you from your surgeon. If you or anyone in your household have experienced Covid symptoms in the past week, please notify your surgeon or the nurse liaison at the phone number below for possible testing. VERBAL AND WRITTEN instructions given to ___PATIENT and asked if any additional questions and then verbalized understanding. Patient advised to call surgeon office or pre surgery nurse liaison [phone] if any additional questions.
[2021-10-02 14:29] VITALS: BP 118/77; PULSE 63; RESP 18; TEMP 36.7; O2SAT 99; BMI 33.9
--- NOTE | 2021-10-17 14:23 | WPDANESEPPF ---
Anes - Initial Pre Proc Eval Procedure: Operation Date: 10/18/21 12:00 Proposed Procedures p Hand Assisted Laparoscopic Low Anterior Resection - Deandra Olvera MD Date/Time: 10/17/21 14:23 Surgeon: Deandra Olvera MD Pre Op Diagnosis: Rectal Sigmoid Colon Ca Patient Data Age: 66 Gender: M Height: 1.8 m Weight: 110.4 kg Last Vital Signs Temp 98.0 F 10/02/21 14:29 Pulse 63 10/02/21 14:29 Resp 18 10/02/21 14:29 BP 118/77 10/02/21 14:29 Pulse Ox 99 10/02/21 14:29 O2 Del Method Room Air 10/02/21 14:29 Allergies Allergy/AdvReac Type Severity Reaction Status Date / Time No Known Allergies Allergy Verified 10/02/21 13:59 Home Medications Medication Instructions Recorded Confirmed Type olmesartan 20 mg tablet 20 mg PO DAILY 06/27/20 10/02/21 History aspirin 81 mg tablet 81 mg PO 2XW 09/07/21 10/02/21 History erythromycin 500 mg tablet 1 g PO .COMPLEX #6 tabs 09/25/21 10/02/21 Rx cetirizine 10 mg tablet (Zyrtec) 10 mg PO DAILY 10/02/21 10/02/21 History fxrpvgds-nde-itmcw acid 300 1 tablet PO DAILY 10/02/21 10/02/21 History mcg-lycopene 600 mcg-lutein 300 mcg tablet (Centrum Silver Men) ciprofloxacin HCl 500 mg tablet 500 mg PO ONCE #1 tablet 10/13/21 Rx Patient hx anesthesia problems: none Family hx anesthesia problems: none Results Review: All pre-operative results and documents have been reviewed as part of the pre-operative evaluation. [facility] Past Medical History Medical History Hypertension Surgical History Surgical History History of laparoscopic appendectomy 06/27/20 History of nephrectomy Family History Family History Father Family history of malignant neoplasm Throat cancer Mother Family history of malignant neoplasm Lung cancer Sibling Diabetes mellitus Social History Social History (Reviewed 10/18/21 @ 11:02 by CINTHYA Jason Smoking packs per day: 1 Smoking cigarettes per day: 20.0 Years smoked: 20 Smoking pack-years: 20.00 Smoking status: Former smoker Tobacco type: cigarettes Second hand tobacco smoke exposure: Yes Smoking end date: 02/11/95 Alcohol intake: current Drinks per week: 1 Substance use: former Substance use type: marijuana Other substance usage details: 1970 Living arrangements: with family 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 Gender identity (if verbalized by the patient): Male Sexual Orientation (if Verbalized by the Patient): Straight or Heterosexual Spiritual care concerns: No Anes - Eval Final PreProcedure Day of Procedure 10/17/21 14:23 Patient weight: obese Heart: regular rate and rhythm Lungs: clear to auscultation Airway: Mallampati scale class III (anterior) Neurological: alert and oriented Last oral intake: >/= 8 hours ASA classification: III Emergent: no Anesthetic plan: proceed Anesthesia type and monitoring: general ETT Results Review: All pre-operative results and documents have been reviewed as part of the pre-operative evaluation. Informed Consent: The patient's anesthetic plan and its attendant risks and benefits were discussed with the patient/family/POA. Questions were solicited and answers provided to the satisfaction of the patient/family/POA.
[2021-10-18] VITALS (14 sets, daily range): BP systolic 96–151; BP diastolic 56–86; PULSE 62–88; RESP 12–18; TEMP 35.8–36.8; O2SAT 92–99
--- NOTE | 2021-10-18 10:14 | WPDHPUPDATE1 ---
History and Physical Update Update Date/Time: 10/18/21 10:14 History and Physical has been reviewed, including an updated exam of the patient. There are NO changes in the patient's condition. Risks, benefits, and alternatives have been discussed and questions answered. Patient agrees to proceed with procedure.
[2021-10-18] MEDS: ACETAMINOPHEN 500 MG TABLET 1000 MG PO (10:25)
[2021-10-18] MEDS: KETOROLAC 15 MG/ML VIAL (*BKC) IV PUSH (10:26)
[2021-10-18] MEDS: LACTATED RINGERS 1,000 ML 30 ML IV CONT ×2 (10:36→14:51)
--- NOTE | 2021-10-18 11:01 | WPDANESEPP ---
Anes - Eval Pre Procedure Procedure: Operation Date: 10/18/21 12:00 Proposed Procedures p Hand Assisted Laparoscopic Low Anterior Resection - Deandra Olvera MD Date/Time: 10/18/21 11:01 Surgeon: Wade Preop Diagnosis: Sigmoid Colon Cancer Pre Op Diagnosis: Rectal Sigmoid Colon Ca Patient Data Age: 66 Gender: M Height: 1.8 m Weight: 110.4 kg Last Vital Signs Temp 98.0 F 10/02/21 14:29 Pulse 63 10/02/21 14:29 Resp 18 10/02/21 14:29 BP 118/77 10/02/21 14:29 Pulse Ox 99 10/02/21 14:29 O2 Del Method Room Air 10/02/21 14:29 Allergies Allergy/AdvReac Type Severity Reaction Status Date / Time No Known Allergies Allergy Verified 10/02/21 13:59 Home Medications Medication Instructions Recorded Confirmed Type olmesartan 20 mg tablet 20 mg PO DAILY 06/27/20 10/02/21 History aspirin 81 mg tablet 81 mg PO 2XW 09/07/21 10/02/21 History erythromycin 500 mg tablet 1 g PO .COMPLEX #6 tabs 09/25/21 10/02/21 Rx cetirizine 10 mg tablet (Zyrtec) 10 mg PO DAILY 10/02/21 10/02/21 History gftlthgq-zsj-hfldk acid 300 1 tablet PO DAILY 10/02/21 10/02/21 History mcg-lycopene 600 mcg-lutein 300 mcg tablet (Centrum Silver Men) ciprofloxacin HCl 500 mg tablet 500 mg PO ONCE #1 tablet 10/13/21 Rx Laboratory Tests 10/18/21 10:24 Blood Type Pending Antibody Screen Pending ECG: Interpretive Statements SINUS RHYTHM MODERATE T-WAVE ABNORMALITY, CONSIDER ANTERIOR ISCHEMIA ABNORMAL ECG NO PREVIOUS ECG AVAILABLE FOR COMPARISON Electronically Signed On 10-02-2021 16:38:16 CDT by Jean Au M.D. Patient hx anesthesia problems: none Family hx anesthesia problems: none Results Review: All pre-operative results and documents have been reviewed as part of the pre-operative evaluation. [facility] Past Medical History Medical History Hypertension Surgical History Surgical History History of laparoscopic appendectomy 06/27/20 History of nephrectomy Family History Family History Father Family history of malignant neoplasm Throat cancer Mother Family history of malignant neoplasm Lung cancer Sibling Diabetes mellitus Social History Social History Smoking packs per day: 1 Smoking cigarettes per day: 20.0 Years smoked: 20 Smoking pack-years: 20.00 Smoking status: Former smoker Tobacco type: cigarettes Second hand tobacco smoke exposure: Yes Smoking end date: 02/11/95 Alcohol intake: current Drinks per week: 1 Substance use: former Substance use type: marijuana Other substance usage details: 1970 Living arrangements: with family 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
[2021-10-18] MEDS: ceFAZolin 2 GM/D5W 50 ML 2 GM/50 ML BAG IVPB (11:12)
[2021-10-18] MEDS: metroNIDAZOLE 500 MG/ISO 100ML 500 MG/100 ML BAG 100 MG IVPB (11:30)
[2021-10-18] MEDS: BUPIVACAINE/EPINEPHRINE 0.25% 50 ML VIAL 30 ML INFILTRATE (12:09)
--- NOTE | 2021-10-18 14:46 | W.PM.PROC2 ---
Procedure Note - Detailed Date of Procedure 10/18/21 Pre-op Diagnosis distal sigmoid colon cancer Post-op Diagnosis Same Procedure Performed Hand assisted laparoscopic low anterior resection Surgeon Deandra Olvera MD Behavioral Sciences Department Chair Dr. Alvarez Anesthesia General and Local Indications 66-year-old male presenting to the office with biopsy-proven low sigmoid colon cancer Findings distal sigmoid colon cancer at approximately 10 cm Description of Procedure The patient was taken to the operating room and placed in the modified lithotomy position. After adequate induction of general anesthesia, the patient was prepped and draped in the normal sterile fashion. A time-out was then done to verify the patient's identity, as well as the procedure being performed. Dr. Alvarez was present for all critical portions of the case including parts of the dissection and the anastomosis. I began by making a hand port incision around the umbilicus. This incision was carried down into the peritoneal cavity and no adhesions were noted. At this point, the hand port was placed and the abdomen was insufflated. I then placed a trocar through this site and under direct visualization placed a 5 mm and 12 mm ports in the right lower abdomen. There were some adhesions of the small bowel to the pelvis and these were taken down with the LigaSure device. I was then able to sweep the small bowel out of the operative field. I then identified the the mass in the distal sigmoid colon. This was noted to be in the distal sigmoid approximately 10 cm from the anal verge. I then mobilized the proximal colon to gain adequate length for our anastomosis. This was somewhat difficult given his previous left nephrectomy. I took down the white line of Toldt laterally along the sigmoid and descending colon. In order to insure adequate length I went ahead and mobilized the splenic flexure as well. I then began dissection of the sigmoid colon itself. I used a medial to lateral approach 1st identifying the left colic vessels. The left colic vessels were identified at the base the mesentery. I was unable to visualize the left ureter, given his previous nephrectomy. I then took down the left colic vessels using the LigaSure device. I then carried this dissection plane inferiorly to the level of the distal sigmoid upper rectum. I then dissected laterally by taking down the white line of Toldt in this area. Also dissected around the area of the distal sigmoid and upper rectum. I was then able to get around circumferentially in the distal sigmoid upper rectal area and was able to get into the mesorectal plane posteriorly. I then transected the distal sigmoid approximately 2 cm distal to the mass using a echelon stapler. Of note this did take 3 staple loads. At this point I was able to extracorporealyze the specimen. I then again was able to identify the mass and noted adequate clear margin distally. I then found an area proximal to this mass approximately 10 cm to transect the proximal sigmoid colon. This was done with an echelon stapler. I then prepared the proximal colon for our colorectal anastomosis. Using the EEA sizers, it was noted a 28 EEA stapler would be used for the anastomosis. I then used a auto pursestring device after transecting the proximal colon and placing the 28 anvil in the proximal colon. We then reinsufflated the abdomen and noted adequate length of the proximal colon for our anastomosis. The rectum was then dilated 1st digitally then with the EEA sizers. Once adequately done, the 28 EEA stapler was placed through the rectum and brought out through the middle of the previous staple line. I then completed a 28 EEA colorectal anastomosis. We then did an air leak test using the proctoscope and no leak was noted. The anastomosis was noted to be widely patent and tension-free. I then examined the rest of the abdomen and no other pathology was noted. Then copiously irrigated th
--- NOTE | 2021-10-18 16:24 | ADMGEN ---
This patient, Sundeep Burnette, was admitted to Medical Room 253-01. Patient/family oriented to hospital policies and general routines including ID bracelet, bed and alarms, visiting hours, pain management, procedures, bathroom and other care routines, personal items, smoking policy, room service/diet, and visiting hours. Information on how to activate the Rapid Response Team has been discussed. Patient/Family are encouraged to report perceived risks to care and to ask questions if they do not understand what they are told or what they should do.
[2021-10-18] MEDS: LACTATED RINGERS 1,000 ML 100 ML IV CONT (16:43)
[2021-10-18] MEDS: HYDROcodone/acetaminophen (*CRX) 5-325 MG TABLET 1 TAB PO ×2 (16:48→20:45)
[2021-10-19 03:35] VITALS: BP 127/72; PULSE 81; RESP 18; TEMP 36.7; O2SAT 94
[2021-10-19 05:22] LABS: Basophils Percent Auto 0.2 % (0.2-1.2); Hematocrit 38.3 % (42.0-52.0); Immature Granulocyte Absolute 0.07 K/mm3 (0.00-0.031); Immature Granulocyte Percent A 0.6 % (0-0.5); Lymphocytes Absolute Auto 0.49 K/mm3 (0.9-3.2); Lymphocytes Percent Auto 3.9 % (18.3-44.2); Mean Corpuscular HGB Conc 33.9 g/dl (32-36); Mean Corpuscular Hemoglobin 31.9 pg (26-34); Mean Corpuscular Volume 94.1 fl (80-100); Monocytes Percent Auto 7.7 % (2.6-8.5); Neutrophils Absolute Auto 10.9 K/mm3 (1.3-6.7); Neutrophils Percent Auto 87.6 % (45.5-73.1); Platelet Count Result 175 k/mm3 (150-375); Red Blood Count 4.07 M/mm3 (4.6-6.20); Red Cell Distribution Width 12.5 % (11.5-14.5); White Blood Count 12.5 K/mm3 (4.5-10.0)
[2021-10-19 05:29] LABS: Anion Gap 15 mmol/L (8-16); Blood Urea Nitrogen 19 mg/dL (9-20); Calcium 8.4 mg/dL (8.4-10.2); Carbon Dioxide 20 mmol/L (22-30); Chloride 103 mmol/L (98-107); Estimated CRCL calculation 50 ml/min; Estimated Glomerular Filt Rate 41; Glucose 169 mg/dL (65-110); Potassium 4.7 mmol/L (3.4-5.0); Sodium 138 mmol/L (137-145)
[2021-10-19] MEDS: ENOXAPARIN 40 MG/0.4 ML SYRINGE SUB-Q (08:43)
[2021-10-19] MEDS: LACTATED RINGERS 1,000 ML 100 ML IV CONT ×2 (09:19→19:19)
--- NOTE | 2021-10-19 09:39 | PM.PNGS ---
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 Status: Acute Plan doing well, cont clears, await ROBF, encourage OOB/IS, await path Subjective Subjective Date/Time Seen: 10/19/21 09:39 feels ok, incisional soreness, juan clears Review of Systems Review of Systems: All systems reviewed & are unremarkable except as noted in HPI and below Exam Const: General: cooperative, comfortable and no acute distress Resp: Auscultation: clear to auscultation bilaterally Cardio: Rate: regular rate Rhythm: regular rhythm GI: Inspection: normal to inspection, Abdominal wall edema, distended and incision GI Palp: Yes abdominal tenderness, Yes Soft to palpation, Yes Tenderness to palpation present (GI), No Guarding due to palpation present (GI) and No Rigid due to palpation Objective Data Vital Signs Vital Signs: Vital Signs - 24 hr 10/18/21 11:00 10/18/21 14:51 10/18/21 15:06 Temperature 36.3 C L 36.2 C L Pulse Rate 62 88 68 Respiratory Rate 16 14 16 Blood Pressure 134/79 112/67 96/56 L Pulse Oximetry 99 96 98 Oxygen Delivery Room Air Simple Face Mask Simple Face Mask Oxygen Flow Rate 10 10 10/18/21 15:21 10/18/21 15:36 10/18/21 15:57 Temperature 36.2 C L Pulse Rate 72 65 70 Respiratory Rate 16 14 18 Blood Pressure 101/67 116/63 108/69 Pulse Oximetry 93 93 92 Oxygen Delivery Room Air Room Air Room Air Oxygen Flow Rate 10/18/21 16:12 10/18/21 16:30 10/18/21 16:45 Temperature 36.3 C L 35.8 C L Pulse Rate 66 67 Respiratory Rate 12 12 Blood Pressure 134/75 139/74 Pulse Oximetry 94 94 93 Oxygen Delivery Room Air Oxygen Flow Rate 10/18/21 17:16 10/18/21 17:28 10/18/21 18:25 Temperature 36.4 C 36.4 C Pulse Rate 72 71 Respiratory Rate 12 16 Blood Pressure 151/80 H 150/86 H Pulse Oximetry 96 99 Oxygen Delivery Room Air Oxygen Flow Rate 10/18/21 19:30 10/18/21 20:00 10/18/21 23:41 Temperature 36.8 C 36.7 C Pulse Rate 75 75 78 Respiratory Rate 18 18 18 Blood Pressure 141/84 H 130/74 Pulse Oximetry 96 96 95 Oxygen Delivery Room Air Oxygen Flow Rate 10/19/21 03:35 10/19/21 08:48 Temperature 36.7 C Pulse Rate 81 Respiratory Rate 18 Blood Pressure 127/72 Pulse Oximetry 94 Oxygen Delivery Room Air Oxygen Flow Rate Intake/Output Intake/Output: Intake & Output 10/16/21 10/17/21 10/18/21 10/19/21 23:59 23:59 23:59 23:59 Intake Total 1650 1360 Output Total 105 1000 Balance 1545 360 Meds/Results Medications: Active Medications Generic Name Dose Route Start Last Admin Trade Name Freq PRN Reason Stop Dose Admin Hydrocodone Bitart/Acetaminophen 1 tab 10/18/21 14:43 10/18/21 20:45 Hydrocodone/Acetaminophen (*Crx) 5-325 Mg Tablet PO 1 tab Q4H PRN Administration Pain Rated 4-6 Alvimopan 12 mg 10/19/21 21:00 Alvimopan 12 Mg Capsule PO 10/26/21 20:59 Q12HR SUSAN Enoxaparin Sodium 40 mg 10/19/21 09:00 10/19/21 08:43 Enoxaparin 40 Mg/0.4 Ml Syringe SUB-Q 40 mg DAILY SUSAN Administration Lactated Ringer's 1,000 mls @ 100 mls/hr 10/18/21 14:45 10/19/21 09:19 Lr - Lactated Ringers Iv IV CONT 100 mls/hr .Q10H SUSAN Administration Morphine Sulfate 2 mg 10/18/21 16:58 Morphine Sulfate (*Crx) 2 Mg/Ml Inj IV PUSH Q2HR PRN Pain Rated 4-6 Morphine Sulfate 4 mg 10/18/21 16:58 Morphine Sulfate (*Crx) 4 Mg/Ml Inj IV PUSH Q2HR PRN Pain Rated 7-10 Ondansetron HCl 4 mg 10/18/21 17:00 Ondansetron Inj 4 Mg/2 Ml Vial IV PUSH Q4H PRN Nausea And Vomiting Labs Labs: Laboratory Results - last 24 hr 10/18/21 10/19/21 10/19/21 10:24 04:57 04:57 WBC 12.5 H RBC 4.07 L Hgb 13.0 L Hct 38.3 L MCV 94.1 MCH 31.9 MCHC 33.9 RDW 12.5 Plt Count 175 MPV 10.0 Immature Gran % (Auto) 0.6 H Neut % (Auto) 87.6 H Lymph % (Auto) 3.9 L Mo
--- NOTE | 2021-10-19 10:40 | WPDANESPN ---
Anes - Prog Note Post-Op Date/Time: 10/19/21 10:40 Cardiovascular status: normal Respiratory status: normal Airway patency: baseline Mental status: baseline Post-Op hydration status: normal Vital Signs: Last Vital Signs Temp 36.7 C 10/19/21 03:35 Pulse 81 10/19/21 03:35 Resp 18 10/19/21 03:35 BP 127/72 10/19/21 03:35 Pulse Ox 94 10/19/21 03:35 O2 Del Method Room Air 10/19/21 08:48 O2 Flow Rate 10 10/18/21 15:06 Pain Score (VAS): 3 I/O: Intake & Output 10/18/21 10/19/21 10/19/21 23:59 07:59 15:59 Intake Total 1500 850 510 Output Total 105 1000 1650 Balance 1395 -150 -1140 Laboratory Tests 10/19/21 04:57 10/19/21 04:57 10/18/21 10/19/21 10/19/21 10:24 04:57 04:57 WBC 12.5 H RBC 4.07 L Hgb 13.0 L Hct 38.3 L MCV 94.1 MCH 31.9 MCHC 33.9 RDW 12.5 Plt Count 175 MPV 10.0 Immature Gran % (Auto) 0.6 H Neut % (Auto) 87.6 H Lymph % (Auto) 3.9 L [place] % (Auto) 7.7 Eos % (Auto) 0.0 Baso % (Auto) 0.2 Lymph # (Auto) 0.49 L [place] # (Auto) 1.0 H Eos # (Auto) 0.0 Baso # (Auto) 0.0 Abs Immat Gran (auto) 0.07 H Absolute Neuts (auto) 10.9 H Absolute Nucleated RBC 0.0 Nucleated RBC % 0.0 Sodium 138 Potassium 4.7 Chloride 103 Carbon Dioxide 20 L Anion Gap 15 BUN 19 Creatinine 1.70 H Estim Creat Clear Calc 50 Estimated GFR 41 L Glucose 169 H Calcium 8.4 Blood Type O Negative Antibody Screen Negative Patient Feedback: Patient satisfied with anesthetic care.
[2021-10-19] MEDS: HYDROcodone/acetaminophen (*CRX) 5-325 MG TABLET 1 TAB PO (11:27)
[2021-10-19 13:10] LABS: Appearance Urine Clear (Clear); Bilirubin Urine Negative (Negative); Blood Urine 3+ (Negative); Glucose Urine UA Negative (Negative); Ketones Urine Negative (Negative); Leukocyte Esterase Ur 3+ LEU/UL (Negative); Nitrate Urine Negative (Negative); Protein Urine 1+ mg/dL (Negative); Urobilinogen Urine 0.2 mg/dL (<2.0); pH Urine 6.5 (5.0-9.0)
[2021-10-19 13:21] LABS: Add Urine Microscopic? YES; Color Urine Light Red (Yellow)
[2021-10-19 13:56] LABS: Squamous Epithelial Cell Urine Occasional /hpf (Few)
[2021-10-19 14:00] VITALS: BP 114/64; PULSE 71; RESP 14; TEMP 36.9; O2SAT 95
[2021-10-19 20:00] VITALS: PULSE 75; RESP 20; O2SAT 95
[2021-10-19] MEDS: CIPROFLOXACIN 400 MG/D5W 200ML 200 ML 200 MG IVPB (20:43)
[2021-10-19] MEDS: ALVIMOPAN 12 MG CAPSULE PO (20:44)
[2021-10-19 20:51] VITALS: BP 138/82; PULSE 75; RESP 20; TEMP 36.6; O2SAT 95
[2021-10-20 04:25] VITALS: BP 161/84; PULSE 78; RESP 20; TEMP 36.5; O2SAT 94
[2021-10-20 05:08] LABS: Hematocrit 34.1 % (42.0-52.0); Hemoglobin 11.7 g/dL (14.0-18.0); Mean Corpuscular HGB Conc 34.3 g/dl (32-36); Mean Corpuscular Hemoglobin 32.5 pg (26-34); Mean Corpuscular Volume 94.7 fl (80-100); Platelet Count Result 153 k/mm3 (150-375); Red Cell Distribution Width 12.7 % (11.5-14.5); White Blood Count 10.3 K/mm3 (4.5-10.0)
[2021-10-20 05:14] LABS: Anion Gap 8 mmol/L (8-16); Blood Urea Nitrogen 21 mg/dL (9-20); Carbon Dioxide 24 mmol/L (22-30); Chloride 106 mmol/L (98-107); Estimated CRCL calculation 57 ml/min; Estimated Glomerular Filt Rate 47; Glucose 121 mg/dL (65-110); Potassium 4.1 mmol/L (3.4-5.0); Sodium 138 mmol/L (137-145)
[2021-10-20] MEDS: LACTATED RINGERS 1,000 ML 100 ML IV CONT (07:57)
[2021-10-20] MEDS: CIPROFLOXACIN 400 MG/D5W 200ML 200 ML 200 MG IVPB (07:57)
[2021-10-20] MEDS: ENOXAPARIN 40 MG/0.4 ML SYRINGE SUB-Q (08:00)
[2021-10-20] MEDS: ALVIMOPAN 12 MG CAPSULE PO (08:00)
--- NOTE | 2021-10-20 11:39 | PM.DS ---
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 analgesia, Colace (2) Hypertension: Code(s): I10 - Essential (primary) hypertension Status: Acute Assessment and Plan: stable, continue home medication (3) BMI 34.0-34.9,adult: Code(s): Z68.34 - Body mass index [BMI] 34.0-34.9, adult Status: Acute Assessment and Plan: stable, discussed lifestyle and dietary modification DS: Summary Hospital Course Reason for hospitalization: rectosigmoid colon cancer Hospital Course: The patient is a 66-year-old male that presented to the hospital with a rectosigmoid colon cancer, biopsy proven via colonoscopy. On 10/18, the patient was taken to the operating room and LAR was performed, please see full operative report for details of procedure. Postoperatively, the patient did well and was transferred to the medical-surgical floor. On postoperative day 1. , the patient was doing well and his Flowers was removed. He was up and ambulating and tolerating a clear liquid diet. Later in the day he did have some flatus. On today postoperative day 2. , patient has had a few small bowel movements. We were able to advance his diet without issue. He has been up and ambulating without issue. The patient reports his pain is well controlled. He will be discharged home with p.o. analgesia and follow-up in 2 weeks. Status at Discharge Overall status at discharge: patient is progressing back to baseline Time Spent with Patient Time attestation: Total time spent providing and/or coordinating discharge services: Time spent: Less than 30 minutes Exam Const: General: cooperative, comfortable and no acute distress Resp: Auscultation: clear to auscultation bilaterally Cardio: Rate: regular rate Rhythm: regular rhythm GI: Inspection: normal to inspection, non-distended and incision GI Palp: Yes abdominal tenderness, Yes Soft to palpation, Yes Tenderness to palpation present (GI), No Guarding due to palpation present (GI) and No Rigid due to palpation DS: Data Data Completed and Pending Pending studies at discharge: Pending at discharge 10/18/21 13:54 Surgical [PTH] Routine Labs on day of discharge: Labs from last 24 hours 10/20/21 10/20/21 10/19/21 04:53 04:53 12:48 WBC 10.3 H RBC 3.60 L Hgb 11.7 L Hct 34.1 L MCV 94.7 MCH 32.5 MCHC 34.3 RDW 12.7 Plt Count 153 MPV 10.0 Sodium 138 Potassium 4.1 Chloride 106 Carbon Dioxide 24 Anion Gap 8 BUN 21 H Creatinine 1.50 H Estim Creat Clear Calc 57 Estimated GFR 47 L Glucose 121 H Calcium 9.0 Urine Color Light red H Urine Appearance Clear Urine pH 6.5 Ur Specific [place] 1.010 Urine Protein 1+ H Urine Glucose (UA) Negative Urine Ketones Negative Ur Blood (Man) 3+ H Urine Nitrate Negative Urine Bilirubin Negative Urine Urobilinogen 0.2 Leukocyte Esterase Rfl 3+ H Urine RBC 11-20 H Urine WBC 7-9 H Ur Squamous Epith Cells Occasional Discharge Plan Discharge Attending physician on discharge: Deandra Olvera Discharging Clinician: Deandra Olvera Anticipated Discharge Date/Time: 10/20/21 14:00 Patient Disposition: Home, Self-Care Activity: may shower and no straining Diet: as tolerated Wound Care Instructions: incision open to air Patient Instructions: Antibiotic Form Stand Alone Forms: General Discharge Information Follow-up/Referrals: Deandra Olvera MD [Physician] - 2 Weeks Discharge Medications: New hydrocodone-acetaminophen 5-325 mg tablet 1 tablet PO Q6H PRN (Reason: pain
== END 2021-10-20 13:22 | disposition home or self-care (01) | DRG 331 ==
LOC: ANH2MED 16:20
PROVIDERS: Nurse Practitioner Family; Admitting Provider Surgery; PCP Family Medicine; Visit Provider Surgery
PROC: 0D1E4Z4 Bypass Large Intestine to Cutaneous, Percutaneous Endoscopic Approach (ICD-10-PCS; principal; 2021-10-18 12:00)
DX: C19 Malignant neoplasm of rectosigmoid junction (principal); I10 Essential (primary) hypertension; Z90.49 Acquired absence of other specified parts of digestive tract; Z90.5 Acquired absence of kidney; Z87.891 Personal history of nicotine dependence; E66.9 Obesity, unspecified; Z68.34 Body mass index [BMI] 34.0-34.9, adult; Z79.82 Long term (current) use of aspirin
CPT/HCPCS: 36415; 80048; 81001; 85025; 85027; 86850; 86900; 86901; 88309; A9270; C1729; J0330; J0690; J0744; J1100; J1170; J1650; J1885; J2250; J2405; J2704; J2710; J3010; J7030; J7120

== ENCOUNTER → 2021-11-16 13:56 | Outpatient (CLI) | payer OTHER, BC, SELFPAY ==
--- NOTE | ~2021-11-16 | CT_ITS ---
EXAMINATION: CT chest abdomen pelvis w con DATE: 11/16/2021 14:38 CDT INDICATION: Malignant neoplasm of the sigmoid colon. Colonoscopy performed on 10/18/2021. TECHNIQUE: Computed tomography (CT) of the chest, abdomen, and pelvis was performed with 100 cc Omnip aque 350 intravenous contrast. The dose-length product was 1465.56 mGy-cm. COMPARISON: CT dated 06/27/2020 FINDINGS: CHEST CT: Heart size is normal. No thoracic lymphadenopathy. There is mild atherosclerosis of the aorta and cor onary arteries. No significant pleural or pericardial effusion. There is a left upper lobe calcified granuloma. No endobronchial lesions. No pneumothorax. No peripheral consolidation. There is a 2 mm no dule in the left lower lobe, too small to characterize for calcification although likely benign. Ther e are hemangiomas of T10 and T12. Mild thoracic and lumbar spondylosis. ABDOMEN/PELVIS CT: Fatty infiltration of the liver. The spleen, pancreas, adrenal glands and right kidney are unremarkab le. Status post left nephrectomy. There is mild thickening of the sigmoid colon with nearby fatty inf iltration and fluid. There is an anastomotic line at the rectosigmoid junction. These findings may be recent postoperative change. Clinically correlate. Colonic diverticulosis without evidence for diver ticulitis. There is mild portacaval lymphadenopathy measuring 2.9 x 1.7 cm. Small fat-containing umbi lical hernia. Mild osteoarthritis of the hips. IMPRESSION: 1. Mild thickening of the sigmoid colon with adjacent inflammatory changes and fluid. Anastomotic erick e present at the rectosigmoid junction. Although these findings may all relate to recent surgery, res idual/recurrent malignancy is not excluded. 2: Mild portacaval lymphadenopathy, nonspecific. Consider correlation with pet/CT scan. Reviewed, dictated and finalized at location A. IMPRESSION: 1. Mild thickening of the sigmoid colon with adjacent inflammatory changes and fluid. Anastomotic line present at the rectosigmoid junction. Although these fi ndings may all relate to recent surgery, residual/recurrent malignancy is not e xcluded. 2: Mild portacaval lymphadenopathy, nonspecific. Consider correlation with pet/ CT scan.
[2021-11-16 14:20] LABS: Estimated Glomerular Filt Rate 44
== END ==
PROVIDERS: PCP Family Medicine; Visit Provider Internal Medicine Hematology & Oncology
DX: C18.7 Malignant neoplasm of sigmoid colon (principal)
CPT/HCPCS: 71260; 74177; Q9967

== ENCOUNTER 2021-11-20 14:23 | Outpatient (CLI) | payer OTHER, BC, SELFPAY ==
[2021-11-20 15:23] LABS: Partial Thromboplastin Time 31.4 SECONDS (22.3-36.8); Prothrombin Time 12.9 Seconds (11.1-14.7)
== END 2021-11-20 14:24 | disposition home or self-care (01) ==
LOC: ANHSURGERY 14:26
PROVIDERS: PCP Family Medicine; Visit Provider Surgery
DX: C18.7 Malignant neoplasm of sigmoid colon (principal); Z01.818 Encounter for other preprocedural examination
CPT/HCPCS: 36415; 85610; 85730

== ENCOUNTER 2021-11-22 01:38 | Day surgery (SDC) | payer OTHER, BC, SELFPAY ==
--- NOTE | 2021-11-17 09:40 | PC.NURSE ---
Report to the Outpatient Waiting Room, entrance under the green pavilion located off [facility], at time _1100 on date _11/22/21 . OR Time: _1300 . Time changes happen often and if your time is changed the preop area will call you the afternoon before. - You and your visitor will be asked to self-screen and do not enter if you have any COVID symptoms. - We encourage only one visitor and NO visitors under age 16 are allowed at this time. Your visitor will receive communication by the phone number that is given day of service. - The patient visitor is requested to social distance or may leave the building when not with patient due to restrictions. - A mask is required within the hospital. Patients may have clear liquids (water, carbonated beverages, clear teas, apple juice) until 3 hours prior to surgery with a maximum of 20 ounces. - No food from midnight until time of surgery - Infants may have breast milk until 4 hours before surgery, infant formula 6 hours prior to surgery. - Children will be allowed to drink immediately following surgery. If applicable, please bring a bottle or sippy cup to assist with drinking. Juice, water, soda, and popsicles are readily available. For infants on formula, please bring formula the day of surgery. Pacifiers are allowed. Take the following medications with a SIP of water the morning of surgery: __NONE Medications to discontinue per physician NONE Date to take last dose Please no make-up, nail angolan, hairspray, perfume, deodorant, or body powder the day of surgery. No jewelry (including any body piercings) or valuables the day of surgery, leave them at home. Please take a shower or bath the night before, or the morning of, surgery with an antibacterial soap. Wear comfortable, loose fitting clothing. Children are encouraged to wear pajamas. - Jewelry must be removed prior to entering the operating room. Rings and piercings that are not removed may be cut off. - The hospital will not accept responsibility for valuables. - Please leave all valuables, including medications, at home the day of surgery. If you are going home after surgery, a licensed rivet driver must drive you home. - NO public transportation without another adult. - We recommend that an adult stay with you for 24 hours following discharge. - We also recommend that you do not drive, make important decision, drink alcoholic beverages, or take any drugs that were not prescribed by your health care provider for at least 24 hours after your discharge time. For Pediatric surgeries, we recommend two adults accompany the child home. Follow any additional instructions given to you from your surgeon. If you or anyone in your household have experienced Covid symptoms in the past week, please notify your surgeon or the nurse liaison at the phone number below for possible testing. Telephone instructions given to _PATIENT and asked if any additional questions and then verbalized understanding. Patient advised to call surgeon office or pre surgery nurse liaison [phone] if any additional questions.
[2021-11-17 09:47] VITALS: BMI 32.6
--- NOTE | ~2021-11-22 | XR_ITS ---
EXAMINATION: XR chest port-a-cath/central INDICATION: Port-A-Cath insertion TECHNIQUE: Portable AP chest at 1232 hours COMPARISON: None available FINDINGS: A left subclavian Port-A-Cath ends with its tip in the proximal superior vena cava. No pleu ral effusion or pneumothorax. There is mild atelectasis of the lung bases. The heart size is normal. IMPRESSION: 1. Left subclavian Port-A-Cath ending with its tip in the proximal superior vena cava. Reviewed, dictated and finalized at location A. IMPRESSION: 1. Left subclavian Port-A-Cath ending with its tip in the proximal superior gosia a cava.
--- NOTE | ~2021-11-22 | XR_ITS ---
EXAMINATION: XR fl guide central line place DATE: 11/22/2021 12:06 INDICATION: Port catheter insertion TECHNIQUE: Single fluoroscopic image of the central chest was obtained during procedure performed by Dr. Olvera. Radiologist was not present for the imaging or procedure. The amount of fluoroscopy time u sed during this procedure was 0.8 minutes. COMPARISON: None. FINDINGS: Left subclavian central venous port catheter with distal tip at the level of the midsuperior vena cav a. Visualized portions of the central lungs are clear. Heart size is normal. IMPRESSION: 1. Left internal jugular central venous port catheter tip in the midsuperior vena cava. Reviewed, dictated and finalized at location B. IMPRESSION: 1. Left internal jugular central venous port catheter tip in the midsuperior ve na cava.
--- NOTE | 2021-11-22 10:00 | PM.IMHP ---
H&P: HPI History of Present Illness Date/Time: 11/22/21 10:00 Chief Complaint: colon cancer Narrative: Pt is a 66 y/o M c colon cancer s/p LAR presenting for VAD placement. Pt c metastatic spread to LN and is going to undergo adjuvant chemotherapy. Pt denies any previous central venous catheterization. Review of Systems Review of Systems: All systems reviewed & are unremarkable except as noted in HPI and below PMFSH Past Medical History Medical History Hypertension Surgical History Surgical History History of colon resection JANY low anterior resection performed 10/18/21 History of laparoscopic appendectomy 06/27/20 History of nephrectomy Family History Family History Father Family history of malignant neoplasm Throat cancer Mother Family history of malignant neoplasm Lung cancer Sibling Diabetes mellitus Social History Social History Smoking packs per day: 1 Smoking cigarettes per day: 20.0 Years smoked: 20 Smoking pack-years: 20.00 Smoking status: Former smoker Tobacco type: cigarettes Second hand tobacco smoke exposure: Yes Smoking end date: 02/11/95 Alcohol intake: never Drinks per week: 1 Substance use: never Substance use type: marijuana Other substance usage details: 1970 Living arrangements: with family 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 Gender identity (if verbalized by the patient): Male Sexual Orientation (if Verbalized by the Patient): Straight or Heterosexual Spiritual care concerns: No Meds Home Medications and Allergies Home Medications Medication Instructions Recorded Confirmed Type olmesartan 20 mg tablet 20 mg PO DAILY 06/27/20 11/17/21 History cetirizine 10 mg tablet (Zyrtec) 10 mg PO DAILY 10/02/21 11/17/21 History Allergies Allergy/AdvReac Type Severity Reaction Status Date / Time No Known Allergies Allergy Verified 11/22/21 09:38 Exam Const: General: cooperative, comfortable, no acute distress and overweight Neck: Neck: normal visual inspection, full ROM and no lymphadenopathy Chest: Chest palpation & inspection: normal inspection of the chest Resp: Auscultation: clear to auscultation bilaterally Cardio: Rate: regular rate Rhythm: regular rhythm GI: Inspection: normal to inspection and non-distended GI Palp: No abdominal tenderness, Yes Soft to palpation, No Tenderness to palpation present (GI), No Guarding due to palpation present (GI) and No Rigid due to palpation Assessment and Plan Assessment and plan (1) 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
--- NOTE | 2021-11-22 10:04 | WPDHPUPDATE1 ---
History and Physical Update Update Date/Time: 11/22/21 10:04 History and Physical has been reviewed, including an updated exam of the patient. There are NO changes in the patient's condition. Risks, benefits, and alternatives have been discussed and questions answered. Patient agrees to proceed with procedure.
--- NOTE | 2021-11-22 10:05 | WPDANESEPPF ---
Anes - Initial Pre Proc Eval Procedure: Operation Date: 11/22/21 11:30 Proposed Procedures p Insertion [facility] Cath - Deandra Olvera MD Date/Time: 11/22/21 10:05 Surgeon: Deandra Olvera MD Pre Op Diagnosis: Malignant Neoplasm of Sigmoid Colon Patient Data Age: 66 Gender: M Height: 1.8 m Weight: 106.2 kg Allergies Allergy/AdvReac Type Severity Reaction Status Date / Time No Known Allergies Allergy Verified 11/22/21 09:38 Home Medications Medication Instructions Recorded Confirmed Type olmesartan 20 mg tablet 20 mg PO DAILY 06/27/20 11/17/21 History cetirizine 10 mg tablet (Zyrtec) 10 mg PO DAILY 10/02/21 11/17/21 History Patient hx anesthesia problems: none Family hx anesthesia problems: none Results Review: All pre-operative results and documents have been reviewed as part of the pre-operative evaluation. [facility] Past Medical History Medical History Hypertension Surgical History Surgical History History of colon resection JANY low anterior resection performed 10/18/21 History of laparoscopic appendectomy 06/27/20 History of nephrectomy Family History Family History Father Family history of malignant neoplasm Throat cancer Mother Family history of malignant neoplasm Lung cancer Sibling Diabetes mellitus Social History Social History Smoking packs per day: 1 Smoking cigarettes per day: 20.0 Years smoked: 20 Smoking pack-years: 20.00 Smoking status: Former smoker Tobacco type: cigarettes Second hand tobacco smoke exposure: Yes Smoking end date: 02/11/95 Alcohol intake: never Drinks per week: 1 Substance use: never Substance use type: marijuana Other substance usage details: 1970 Living arrangements: with family 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 Gender identity (if verbalized by the patient): Male Sexual Orientation (if Verbalized by the Patient): Straight or Heterosexual Spiritual care concerns: No Anes - Eval Final PreProcedure Day of Procedure 11/22/21 10:05 Patient weight: obese Heart: regular rate and rhythm Lungs: clear to auscultation Airway: Mallampati scale class III Neurological: alert and oriented Last oral intake: >/= 8 hours ASA classification: III Emergent: no Anesthetic plan: proceed Anesthesia type and monitoring: general GIVS and standard monitoring Results Review: All pre-operative results and documents have been reviewed as part of the pre-operative evaluation. Informed Consent: The patient's anesthetic plan and its attendant risks and benefits were discussed with the patient/family/POA. Questions were solicited and answers provided to the satisfaction of the patient/family/POA.
[2021-11-22] MEDS: LACTATED RINGERS 1,000 ML 30 ML IV CONT (10:29)
[2021-11-22] MEDS: KETOROLAC 15 MG/ML VIAL (*BKC) IV PUSH (10:31)
[2021-11-22 10:32] VITALS: BP 128/82; PULSE 74; RESP 16; TEMP 36.2; O2SAT 97
[2021-11-22] MEDS: ceFAZolin 2 GM/D5W 50 ML 2 GM/50 ML BAG IVPB (11:15)
[2021-11-22] MEDS: HEPARIN SODIUM 5,000 UNITS/ML VIAL 5000 UNITS IRRIGATION (11:38)
[2021-11-22] MEDS: HEPARIN SODIUM, PORCINE 10,000 UNITS/10 ML VIAL 4000 UNITS XX (11:45)
[2021-11-22] MEDS: BUPIVACAINE/EPINEPHRINE 0.25% 50 ML VIAL INFILTRATE (11:46)
--- NOTE | 2021-11-22 12:06 | W.PM.PROC2 ---
Procedure Note - Detailed Date of Procedure 11/22/21 Pre-op Diagnosis Malignant Neoplasm of Sigmoid Colon Post-op Diagnosis Same Procedure Performed Placement of left subclavian venous access device under fluoroscopic guidance Surgeon Deandra Olvera MD Anesthesia MAC and Local Indications 66 y/o M c metastatic sigmoid cancer requiring chemotherapy Findings first stick L SCV Description of Procedure Patient was brought into the operating room and placed in the supine position. After adequate induction of mac anesthesia, the patient was prepped and draped in normal sterile fashion. Time-out was then done to verify the patient's identity, as well as the procedure being performed. I began by making a small incision in the left chest, I then gained access into the left subclavian vein with an 18 gauge needle. I then placed the guidewire into the vein and confirmed placement via fluoroscopic guidance. I then locally anesthetized the area in the left chest. I then enlarged the incision around the guidewire including making a subcutaneous pocket inferiorly to allow placement of the port itself. I then placed a dilating sheath over the guidewire into the left subclavian vein via sterile Seldinger technique. This was once again done and confirmed via fluoroscopic guidance. I then removed the dilator and the guidewire, now just leaving the sheath in the vein. I then fed the previously flushed catheter into the left subclavian vein under fluoroscopic guidance. At approximately 20 cm, the catheter was noted to be near the atrial caval junction. I then peeled away the sheath, now just leaving the catheter in the vein. I then was able to easily draw and flush from the catheter. The catheter was cut to fit and attached to the port itself. The port was placed into the previously made subcutaneous pocket and sutured in with 0 Ethibond suture. Final fluoroscopic view showed the termination of the catheter at the atrial caval junction with a nice smooth curvature back to the port itself. I was able to gain access to the port with a Ying needle and was able to easily draw and flush from the port. I then flushed 4 cc of a final heparin flush into the port. The incision was closed with 3 0 Vicryl suture in the subcutaneous tissue and the skin was closed with 4 O Monocryl subcuticular suture. Dermabond was then placed on wound. The patient tolerated the procedure well and will be sent to the recovery room in stable condition. Implants L SCV VAD Estimated Blood Loss 10 Drains No Packing No Pathology None sent Complications No immediate complications Condition Stable Disposition PACU [facility] Billing Surgery - Charge Forward: Surgery Billing
[2021-11-22 12:11] VITALS: BP 112/72; PULSE 76; RESP 16; O2SAT 95
[2021-11-22 12:40] VITALS: BP 125/82; PULSE 66; RESP 16; O2SAT 95
--- NOTE | 2021-11-22 12:59 | SUR.PHASEII ---
NO PNEUMOTHORAX PER CXR REPORT.
[2021-11-22 13:00] VITALS: BP 124/77; PULSE 69; RESP 16
== END 2021-11-22 13:09 | disposition home or self-care (01) ==
PROVIDERS: PCP Family Medicine; Visit Provider Surgery
PROC: (CPT 36561; principal; 2021-11-22 11:30)
DX: C18.7 Malignant neoplasm of sigmoid colon (principal); I10 Essential (primary) hypertension; Z90.5 Acquired absence of kidney; Z90.49 Acquired absence of other specified parts of digestive tract; Z87.891 Personal history of nicotine dependence; E66.9 Obesity, unspecified; Z68.32 Body mass index [BMI] 32.0-32.9, adult
CPT/HCPCS: 36561; 36415; 77001; 85610; 85730; C1788; J0690; J1644; J1885; J2250; J2704; J3010; J7030; J7120

== ENCOUNTER 2022-08-27 08:00 | Outpatient (NON) | payer MEDICARE, SELFPAY | END 2022-08-27 08:01 | disposition home or self-care (01) | LOC: ANHLAB 08-28 07:27 | PROVIDERS: PCP Family Medicine; Visit Provider Internal Medicine Gastroenterology | DX: Z85.038 Personal history of other malignant neoplasm of large intestine (principal) | CPT/HCPCS: 88305 ==

== ENCOUNTER 2022-08-27 09:09 | Day surgery (SDC) | payer MEDICARE, SELFPAY ==
[2022-08-20 09:30] VITALS: BMI 30.7
[2022-08-21 09:19] VITALS: BMI 30.7
--- NOTE | 2022-08-24 15:02 | P.PNAN_ITS ---
Anes - Initial Pre Proc Eval Procedure: Operation Date: 08/27/22 11:30 Proposed Procedures p Diagnostic Colonoscopy - Malik Smith MD Date/Time: 08/24/22 15:02 Surgeon: Malik Smith MD Pre Op Diagnosis: History of Colon Cancer Patient Data Age: 67 Gender: M Height: 1.8 m Weight: 100 kg Allergies Allergy/AdvReac Type Severity Reaction Status Date / Time No Known Allergies Allergy Verified 08/21/22 09:15 Home Medications Medication Instructions Recorded Confirmed Type cetirizine 10 mg tablet (Zyrtec) 10 mg PO DAILY 10/02/21 08/21/22 History sodium,potassium,mag sulfates 17.5 See Rx Instructions PO .COMPLEX 08/20/22 08/21/22 Rx gram-3.13 gram-1.6 gram oral soln #354 mL (Suprep Bowel Prep Kit) Patient hx anesthesia problems: none Family hx anesthesia problems: none Results Review: All pre-operative results and documents have been reviewed as part of the pre- operative evaluation. [facility] Past Medical History Medical History (Updated 08/24/22 @ 15:03 by Sourav Marino MD) Hypertension Malignant neoplasm of sigmoid colon Obesity Surgical History Surgical History History of colon resection JANY low anterior resection performed 10/18/21 History of laparoscopic appendectomy 06/27/20 History of nephrectomy Family History Family History Father Family history of malignant neoplasm Throat cancer Mother Family history of malignant neoplasm Lung cancer Sibling Diabetes mellitus Social History Social History Smoking packs per day: 1 Smoking cigarettes per day: 20.0 Years smoked: 20 Smoking pack-years: 20.00 Smoking status: Former smoker Tobacco type: cigarettes Second hand tobacco smoke exposure: Yes Smoking end date: 02/11/95 Alcohol intake: current Drinks per week: 1 Alcohol use details: a few times a month Substance use: never Substance use type: does not use Other substance usage details: 1970 Living arrangements: with family Occupation/Education: retired 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 Gender identity (if verbalized by the patient): Male Sexual Orientation (if Verbalized by the Patient): Straight or Heterosexual Spiritual care concerns: No Anes - Eval Final PreProcedure Day of Procedure 08/24/22 15:02 Patient weight: obese Heart: regular rate and rhythm Lungs: clear to auscultation Airway: Mallampati scale class III Neurological: alert and oriented Last oral intake: >/= 8 hours ASA classification: III Emergent: no Anesthetic plan: proceed Anesthesia type and monitoring: general GIVS and standard monitoring Results Review: All pre-operative results and documents have been reviewed as part of the pre- operative evaluation. Informed Consent: The patient's anesthetic plan and its attendant risks and benefits were discussed with the patient/family/POA. Questions were solicited and answers provided to the satisfaction of the patient/family/POA.
[2022-08-27 10:11] VITALS: BP 117/86; PULSE 60; RESP 20; TEMP 36.7; O2SAT 98
[2022-08-27] MEDS: LACTATED RINGERS 1,000 ML 150 ML IV CONT (10:21)
--- NOTE | 2022-08-27 10:53 | PM.HPGS ---
History of Present Illness History of Present Illness Consent: Risks, benefits, and alternatives have been discussed and questions answered. Patient agrees to proceed with procedure. Chief complaint: History of Colon Cancer Narrative: Sundeep Burnette is a 67 year old male Presents for surveillance colonoscopy. Patient has a history of carcinoma the sigmoid colon removed sec did 1 year ago. Patient presents today for follow-up examination. Patient currently felt be free of disease after colon was resected he had 4/ 7 lymph nodes positive. Currently followed by Dr. Garcia Review of Systems Review of Systems: review of systems noncontributory. [facility] Past Medical History Medical History (Updated 08/27/22 @ 10:55 by Malik Smith MD) Hypertension Malignant neoplasm of sigmoid colon Obesity Surgical History Surgical History History of colon resection JANY low anterior resection performed 10/18/21 History of laparoscopic appendectomy 06/27/20 History of nephrectomy Family History Family History Father Family history of malignant neoplasm Throat cancer Mother Family history of malignant neoplasm Lung cancer Sibling Diabetes mellitus Social History Social History Smoking packs per day: 1 Smoking cigarettes per day: 20.0 Years smoked: 20 Smoking pack-years: 20.00 Smoking status: Former smoker Tobacco type: cigarettes Second hand tobacco smoke exposure: Yes Smoking end date: 02/11/95 Alcohol intake: current Drinks per week: 1 Alcohol use details: a few times a month Substance use: never Substance use type: does not use Other substance usage details: 1970 Living arrangements: with family Occupation/Education: retired 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 Gender identity (if verbalized by the patient): Male Sexual Orientation (if Verbalized by the Patient): Straight or Heterosexual Spiritual care concerns: No Meds Home Medications and Allergies Home Medications Medication Instructions Recorded Confirmed Type cetirizine 10 mg tablet (Zyrtec) 10 mg PO DAILY 10/02/21 08/27/22 History sodium,potassium,mag sulfates 17.5 See Rx Instructions PO .COMPLEX 08/20/22 08/27/22 Rx gram-3.13 gram-1.6 gram oral soln #354 mL (Suprep Bowel Prep Kit) Allergies Allergy/AdvReac Type Severity Reaction Status Date / Time No Known Allergies Allergy Verified 08/27/22 10:10 Vital Signs Vital Signs - 24 hr 08/27/22 10:11 Temperature 98.0 F Pulse Rate 60 Respiratory Rate 20 Blood Pressure 117/86 Pulse Oximetry 98 Oxygen Delivery Room Air Exam Narrative: Physical exam reveals patient to be alert. Vital signs stable. HEENT exam is unremarkable. Patient is anicteric. Lungs are clear to auscultation and percussion. Heart is without murmur or extra sounds. Abdomen bowel sounds are present soft nontender with no organomegaly. Digital external rectal exam normal. Assessment and Plan Assessment and plan (1) History of colon cancer: Code(s): Z85.038 - Personal history of other malignant neoplasm of large intestine Status: Acute Assessment and Plan: Patient has a history of colon cancer resected 1 year ago. Patient presents today for surveillance exam. Currently asymptomatic , he was told there was no evidence of residual disease at present.
[2022-08-27 12:07] VITALS: BP 89/55; PULSE 69; RESP 20; O2SAT 99
[2022-08-27 12:17] VITALS: BP 104/68; PULSE 57; RESP 20; O2SAT 97
[2022-08-27 12:27] VITALS: BP 106/68; PULSE 54; RESP 20; O2SAT 98
--- NOTE | 2022-08-27 14:22 | WPDANESPN ---
Anes - Prog Note Post-Op Date/Time: 08/27/22 14:22 Cardiovascular status: normal Respiratory status: normal Airway patency: baseline Mental status: baseline Post-Op hydration status: normal Vital Signs: Last Vital Signs Temp 36.7 C 08/27/22 10:11 Pulse 54 L 08/27/22 12:27 Resp 20 08/27/22 12:27 BP 106/68 08/27/22 12:27 Pulse Ox 98 08/27/22 12:27 O2 Del Method Room Air 08/27/22 12:27 Pain Score (VAS): 0 I/O: Intake & Output 08/26/22 08/27/22 08/27/22 23:59 07:59 15:59 Intake Total 850 Balance 850 Post-procedural complaints: none Patient Feedback: Patient satisfied with anesthetic care.
== END 2022-08-27 12:37 | disposition home or self-care (01) ==
PROVIDERS: PCP Family Medicine; Visit Provider Internal Medicine Gastroenterology
PROC: 0DJD8ZZ Inspection of Lower Intestinal Tract, Via Natural or Artificial Opening Endoscopic (ICD-10-PCS; CPT 45378; principal; 2022-08-27 11:30)
DX: Z85.038 Personal history of other malignant neoplasm of large intestine (principal)
CPT/HCPCS: 45380